=== PATIENT | female | born 1945 | race African-American/Black ===

== ENCOUNTER 2016-12-12 09:05 | Outpatient (CLI) | payer MEDICARE, BC ==
[2016-12-12 11:25] LABS: ALT (SGPT) 48 U/L (8-55); AST (SGOT) 47 U/L (5-34); Albumin 3.5 g/dL (3.4-4.8); Alkaline Phosphatase 109 U/L (40-150); Anion Gap 14 mmol/L (10-20); BUN (Urea Nitrogen) 17 mg/dL (9.8-20.1); Calc. Creatinine Clearance 0 mL/min (70-130); Calcium 9.5 mg/dL (7.8-10.44); Carbon Dioxide 28 mmol/L (23-31); Cardiac Risk 3.7 (Less than 4.5); Chloride 103 mmol/L (98-107); Cholesterol 183 mg/dl (< 200 Desired); Estimated GFR-MDRD 81; Globulin 3.9 g/dL (2.4-3.5); Glucose 162 mg/dL (80-115); HDL Cholesterol 50 mg/dL (>60 Neg Risk); LDL Cholesterol, Calculated 107 mg/dL; Potassium 4.7 mmol/L (3.5-5.1); Protein, Total 7.4 g/dL (6.0-8.3); Sodium 140 mmol/L (136-145); Triglycerides 132 mg/dL (Less than 150)
[2016-12-12 11:37] LABS: Bilirubin, Total 0.9 mg/dL (0.2-1.2)
[2016-12-12 12:32] LABS: Hemoglobin A1c 11.3 % (4.0-6.0)
[2016-12-12 13:00] LABS: #Basophils 0.2 thou/uL (0.0-0.2); #Eosinphils 0.2 thou/uL (0.0-0.7); #Lymphocytes 3.3 thou/uL (1.20-3.40); #Monocytes 0.6 thou/uL (0.11-0.59); #Neutrophils 5.3 thou/uL (1.40-6.50); %Basophils 1.7 % (0.0-1.0); %Eosinophils 2.1 % (0.0-10.0); %Lymphocytes 34.5 % (21.0-51.0); %Monocytes 6.6 % (0.0-10.0); %Neutrophils 55.2 % (42.0-75.0); Hemoglobin 16.6 g/dL (12.0-16.0); MDiff Complete? YES; Macrocytosis SLIGHT = 6-15 cells (100X) (0-5/hpf); Mean Corpuscular HGB CONC 33.4 g/dL (32.0-36.0); Mean Corpuscular Hemoglobin 34.3 pg (27.0-31.0); Mean Platelet Volume 7.8 fL (7.4-10.4); PLT Morphology Comment Appears Adequate; Platelet Count 213 thou/uL (130-400); RBC Distribution Width 11.9 % (11.5-14.5); Red Blood Cell (RBC) Count 4.85 mill/uL (4.20-5.40); White Blood Cell (WBC) Count 9.6 thou/uL (4.8-10.8)
== END 2016-12-12 09:06 | disposition home or self-care (01) ==
LOC: HPCALD 09:05
PROVIDERS: ATTEND Family Medicine
DX: E78.5 Hyperlipidemia, unspecified (principal); E11.9 Type 2 diabetes mellitus without complications; I10 Essential (primary) hypertension
CPT/HCPCS: 36415; 80053; 80061; 83036; 85025

== ENCOUNTER 2017-01-15 08:43 | Emergency (ER) | payer MEDICARE, BC | END 2017-01-15 10:20 | disposition home or self-care (01) | LOC: BURERS 08:43 | DX: M54.31 Sciatica, right side (principal); E10.9 Type 1 diabetes mellitus without complications; I10 Essential (primary) hypertension; Z79.899 Other long term (current) drug therapy | CPT/HCPCS: 99283 ==

== ENCOUNTER 2018-01-02 14:22 | Emergency (ER) | payer MEDICARE, BC | END 2018-01-02 15:23 | disposition home or self-care (01) | LOC: BURERS 14:22 | DX: G89.29 Other chronic pain (principal); M25.561 Pain in right knee; I10 Essential (primary) hypertension; E10.9 Type 1 diabetes mellitus without complications | CPT/HCPCS: 99283 ==

== ENCOUNTER 2018-02-28 08:35 | Emergency (ER) | payer MEDICARE, BC ==
[2018-02-28 09:48] LABS: Bilirubin Negative (Negative); Blood, Urine Moderate (Negative); Clarity Turbid (Clear); Glucose, Urine (Dipstick) Negative (Negative); Leukocyte Moderate (Negative); Nitrite Positive (Negative); Protein, Urine (Dipstick) 100 mg/dL (Neg-Trace); Specific Gravity, Urine 1.015 (1.005-1.030)
[2018-02-28 09:56] LABS: Bacteria/HPF 4+ HPF (None Seen); Squamous Epithelial 0-3 HPF (0-3)
[2018-02-28] MEDS ORDERED: Ciprofloxacin 500 MG TAB ONE (10:15)
== END 2018-02-28 10:20 | disposition home or self-care (01) ==
LOC: BURERS 08:35
DX: N39.0 Urinary tract infection, site not specified (principal); E11.9 Type 2 diabetes mellitus without complications; I10 Essential (primary) hypertension; Z79.899 Other long term (current) drug therapy; Z79.82 Long term (current) use of aspirin
CPT/HCPCS: 81003; 81015; 87077; 87086; 87186; 99283

== ENCOUNTER 2018-08-28 10:56 | Emergency (ER) | payer MEDICARE, BC | END 2018-08-28 11:30 | disposition home or self-care (01) | LOC: BURERS 10:56 | DX: E10.649 Type 1 diabetes mellitus with hypoglycemia without coma (principal); I10 Essential (primary) hypertension; Z79.899 Other long term (current) drug therapy | CPT/HCPCS: 36416; 99284 ==

== ENCOUNTER 2018-10-26 07:30 | Emergency (ER) | payer MEDICARE, BC | END 2018-10-26 08:07 | disposition home or self-care (01) | LOC: BURERS 07:30 | DX: J01.90 Acute sinusitis, unspecified (principal); E10.9 Type 1 diabetes mellitus without complications; I10 Essential (primary) hypertension | CPT/HCPCS: 99281 ==

== ENCOUNTER 2018-10-28 06:49 | Emergency (ER) | payer MEDICARE, BC | END 2018-10-28 07:55 | disposition home or self-care (01) | LOC: BURERS 06:49 | DX: H61.22 Impacted cerumen, left ear (principal); J02.9 Acute pharyngitis, unspecified; E10.9 Type 1 diabetes mellitus without complications; I10 Essential (primary) hypertension | CPT/HCPCS: 99282 ==